=== PATIENT | female | born 1965 | race Caucasian/White ===

== ENCOUNTER → 2016-09-05 | Outpatient (CLI) | payer MEDICARE, MEDICAID ==
[~2016-09-05] MED LIST: BUPR-168 PO; DOCU-143 PO; IBUP-1773 PO; LISI10TA2 PO; OXYC-471 PO
--- OUTSIDE RECORDS SUMMARY | 2016-09-05 10:37 | XMS REPORT ---
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
--- NOTE | 2016-09-05 13:02 | Diagnostic Imaging Report ---
INDICATION: Pelvic pain. Pelvic sonogram: FINDINGS: The uterus is surgically absent. Left ovary is surgically absent. Right ovary cannot be located. There are no pathologic masses or fluid collections seen in the pelvis. IMPRESSION: Patient reportedly has surgically absent uterus and left ovary. The right ovary cannot be located. There are no abnormalities seen in the pelvis. Dictated by: Dictated on workstation # [id number]
== END ==
LOC: RAD 10:34
PROVIDERS: ATTEND Obstetrics & Gynecology
DX: N83.8 Other noninflammatory disorders of ovary, fallopian tube and broad ligament (principal)
CPT/HCPCS: 76830; 76856

== ENCOUNTER 2016-12-04 12:31 | Outpatient (CLI) | payer MEDICARE, MEDICAID ==
[~2016-12-04] VITALS: Ht 167.6 cm; Wt 76.3 kg
[2016-12-04 13:08] VITALS: BP 139/88
[2016-12-04 13:43] LABS: BASOPHILS % (AUTO) 0 % (0-10); EOSINOPHILS # (AUTO) 0.1 10^3/uL (0.0-0.3); EOSINOPHILS % (AUTO) 2 % (0-10); LYMPHOCYTES # (AUTO) 1.8 X 10^3 (1.0-4.0); LYMPHOCYTES % (AUTO) 31 % (12-44); MEAN CORPUSCULAR HEMOGLOBIN 32 PG (25-34); MEAN CORPUSCULAR HGB CONC 34 G/DL (32-36); MEAN CORPUSCULAR VOLUME 95 FL (80-99); MEAN PLATELET VOLUME 9.5 FL (7.4-10.4); MONOCYTES # (AUTO) 0.3 X 10^3 (0.0-1.0); MONOCYTES % (AUTO) 6 % (0-12); NEUTROPHILS # (AUTO) 3.4 X 10^3 (1.8-7.8); NEUTROPHILS % (AUTO) 61 % (42-75); PLATELET COUNT 272 10^3/uL (130-400); RED BLOOD COUNT 4.31 10^6/uL (4.35-5.85); RED CELL DISTRIBUTION WIDTH 12.5 % (10.0-14.5); WHITE BLOOD COUNT 5.7 10^3/uL (4.3-11.0)
== END 2016-12-04 14:13 | disposition home or self-care (01) ==
LOC: PREOP 12:31
PROVIDERS: ATTEND Obstetrics & Gynecology
DX: Z01.812 Encounter for preprocedural laboratory examination (principal); Z11.2 Encounter for screening for other bacterial diseases; N81.4 Uterovaginal prolapse, unspecified
CPT/HCPCS: 36415; 85025; 86850; 86900; 86901; 87081

== ENCOUNTER 2016-12-11 06:10 | Day surgery (SDC) | payer MEDICARE, MEDICAID ==
[~2016-12-11] VITALS: Ht 167.6 cm; Wt 76.3 kg
[2016-12-11] MEDS ORDERED: MIDAZOLAM 2 MG/2 ML (VERSED) VIAL IV ONE (06:45)
[2016-12-11] MEDS ORDERED: ONDANSETRON 4 MG/2 ML (SDV) Z0FRAN ONE ×2 (06:58→08:47)
[2016-12-11] MEDS ORDERED: LIDOCAINE PF 2% 10 ML (XYLOCAINE) AMP ONE (06:58)
[2016-12-11] MEDS ORDERED: proPOfol 200 MG/20 ML (DIPRIVAN) VIAL IV ONE (06:58)
[2016-12-11] MEDS ORDERED: LACTATED RINGERS 1,000 ML IV ONE ×2 (06:58→08:04)
[2016-12-11] MEDS ORDERED: SEVOFLURANE (ULTANE) 15 ML INHAL SOLN ONE ×6 (06:58→08:35)
[2016-12-11] MEDS ORDERED: DEXAMETHASONE PF 10 MG/ML (DECADRON) VIAL ONE (06:58)
[2016-12-11] MEDS ORDERED: fentaNYL INJECTION 100 MCG/2 ML AMP ONE ×2 (06:59→08:12)
[2016-12-11] MEDS: LACTATED RINGERS 1,000 ML IV PRN ×4 (07:00→21:10)
[2016-12-11] MEDS ORDERED: NS (IVPB) 100 ML ONE (07:04)
[2016-12-11] MEDS ORDERED: ESTROGENS CONJ. CREAM 30 GM (PREMARIN) TUBE ONE (07:04)
--- NOTE | 2016-12-11 07:08 | Progress Note-Pre Operative ---
Pre-Operative Progress Note H&P Reviewed The H&P was reviewed, patient examined and no changes noted. Date H&P Reviewed: December 11, 2016 Time H&P Reviewed: 07:05 Pre-Operative Diagnosis: Cystocele, Rectocele JEF MOLINA DO December 11, 2016 7:08 am
[2016-12-11 07:48] VITALS: BP 139/90
[2016-12-11] MEDS ORDERED: VASOPRESSIN 20 UNIT/1 ML IV ONE (08:00)
[2016-12-11] MEDS ORDERED: morphine INJ 10 MG/ML 1ML (SYR OR VIAL) ONE (08:47)
[2016-12-11] MEDS ORDERED: KETOROLAC 30 MG/ML VIAL ONE (08:48)
[2016-12-11] MEDS ORDERED: IBUP-1773 PO (09:11)
[2016-12-11] MEDS ORDERED: OXYC-471 PO (09:11)
[2016-12-11] MEDS ORDERED: DOCU-143 PO (09:11)
--- NOTE | 2016-12-11 09:13 | Discharge Inst-Women's Service ---
Discharge Inst-Women's Serv Depart Medication/Instructions New, Converted or Re-Newed RX: RX on Chart Consults/Follow Up Additional Follow Up: Yes Orders/Referrals Dr. Molina in 5 weeks Activity Activity: Activity as Tolerated Driving Instructions: No Driving for 1 Week (do not drive while taking oxycodone) NO SMOKING: NO SMOKING Nothing Inside Vagina: No Douching, No [place], No Tampons Diet Discharge Diet: No Restrictions Symptoms to Report to : Bleeding Excessive, Pain Increased, Fever Over 101 Degrees F, Vaginal Bleeding Increase, Questions/Concerns Keep stools soft-> liquid in order to promote proper healing of the rectocele repair. For Any Problems or Questions: Contact Your Physician Skin/Wound Care Wound Care Comment: apply premarin cream, peasized amount vaginally with your finger 3 x a week at night before bed. Bathing Instructions: Shower (x 3 weeks) JEF MOLINA DO December 11, 2016 09:13
[2016-12-11] MEDS ORDERED: ONDANSETRON 4 MG/2 ML (SDV) Z0FRAN IVP PRN (09:15)
[2016-12-11] MEDS ORDERED: HYDROmorphone (DILAUDID) 2 MG/ML VIAL IVP PRN (09:15)
[2016-12-11] MEDS ORDERED: oxyCODONE/APAP 5/325MG (PERCOCET 5) TABLET PO PRN (09:15)
[2016-12-11] MEDS: morphine INJ 10 MG/ML 1ML (SYR OR VIAL) IVP PRN ×2 (09:16→09:26)
[2016-12-11 10:15] VITALS: BP 134/89
--- NOTE | 2016-12-11 11:51 | OPERATIVE REPORT ---
DATE OF SERVICE: 12/11/2016 PREOPERATIVE DIAGNOSES: A 51-year-old female with grade III cystocele and grade III rectocele. POSTOPERATIVE DIAGNOSES: A 51-year-old female with grade III cystocele and grade III rectocele. PROCEDURE: Anterior and posterior colporrhaphy. SURGEON: Dr. Jef Molina IT WEB DEVELOPMENT CONSULTANT: MARGOTH Pemberton. She was necessary for retraction of necessary structure in order to proceed and complete the procedure. ANESTHESIA: General endotracheal. ESTIMATED BLOOD LOSS: 30 cc URINE OUTPUT: 30 cc, clear at the end of procedure. FLUIDS: 1400 mL of Lactated Ringer solution. FINDINGS: A grade III cystocele and rectocele and both of these were midline defects. Normal vaginal mucosa. Separation of the perineal body. SPECIMENS SENT: None. INDICATIONS FOR PROCEDURE: This 51-year-old female is a patient that came to my office with symptomatic urinary stress incontinence, as well as feeling of bulging and pressure in the vagina. She was also having issues with constipation and constantly bulging from that aspect. She feels like she cannot completely empty her bowels whenever she goes to the restroom. On evaluation, she was found to have my findings that were described above and I have discussed with the patient proceeding with surgical repair versus more conservative measures, including vaginal estrogen cream and pessary placement. Due to the patient's intent on continuing to be sexually active, she would prefer to have a surgical repair, as well as the fact that she is relatively healthy for her age and takes no medications. Risks of the procedure was discussed with the patient in detail, including risk of bleeding, infection, damage to any surrounding structures, including but not limited to the bowel, bladder, ureter, risk of fistula formation postoperatively, risk of hematoma formation, risk of DVT formation postoperatively, risks from anesthesia, need for blood transfusion and even . After everything was discussed with the patient in detail, consent was obtained in the preoperative area where the procedure was reviewed and the patient was then taken to the operating room. OPERATIVE REPORT IN DETAIL: Once in the operating room, general anesthesia was found to be adequate. She was placed in the dorsolithotomy position, prepped and draped in the normal sterile fashion. A Cannon catheter was placed using sterile technique and I first examined the patient and had my findings that I listed above. I proceeded with performing the anterior colporrhaphy first. I do this by infiltrating the anterior vaginal wall submucosa with vasopressin in concentration of 20 units and 100 mL of normal saline. I do this along all margins of the defect and then proceed with making a horizontal incision at the bladder neck and once I have added depth to the submucosa, I use this plane to introduce my Metzenbaum scissors and take this down to midline with the defect. I then incised the mucosa down this undermining that I did with the Metzenbaums and then grasped the lateral sidewalls of the mucosal incision using T clamps and bluntly dissect the vesicovaginal fascia off of the underlying submucosa. Once this was done bilaterally, I reapproximate the lateral margins of the vesicovaginal fascia using 0 Vicryl suture in plicating fashion, suspending and elevating the bladder defect. I then trim the access vaginal mucosal tissue and close the anterior vaginal mucosa using 3-0 Vicryl suture in a running locked fashion. After which, my point of dissection appeared to be hemostatic and there was good reduction of the cystocele, as previously noted. I then removed the weight speculum from the patient's vagina and proceeded with evaluating the rectum and the rectocele. At first, I grasped the vaginal introitus at the 4 o'clock and 7 o'clock positions using Allis clamps and infiltrate the perineal body using the same vasopressin concentration as used before. I then infiltrate the entire submucosa of the defect of the rectocele that was noted in my findings above. Once this is done, I make an incision using the knife along the mucocutaneous junction of the posterior fourchette between by 2 Allis clamps. I then take this incision down to a point at the midline down the perineum, connecting the 2 incisions and making an upside-down triangle incisional tract. Once this is in place, I then take off the cutaneous tissue of the perineum using the pickups and knife. This allows me to visualize the submucosa of the vaginal and the posterior wall. I take this along the lateral margins, undermining the tissue using the Metzenbaum scissors in elliptical fashion to the apex of the rectocele defect. Once this is reached at the back of the vagina, close to the vaginal cuff, I then bluntly dissect with some sharp dissection using the Metzenbaum scissors the vaginal mucosa off of the underlying submucosa, exposing the rectovaginal fascia. I, then, am able to close this entire defect in 1 layer using 3-0 Vicryl suture in a running locked fashion to the layer of the mucocutaneous junction. At which point, using 2-0 Vicryl, I performed crown stitches of the bulbocavernosus muscles, reapproximating and reinforcing the perineal body. I then continue my 3-0 Vicryl suture that I used to close the mucosa down the perineal body subcutaneously and then subcuticularly coming back up, reapproximating the skin, the subcutaneous tissue. After which, there was no active bleeding noted from any of my dissection points. I then packed the vagina using vaginal packing soaked in Premarin cream and leave the Cannon catheter in place. The patient tolerated the procedure well and was taken to recovery area in stable condition. Lap and sponge count is correct at the end of procedure. Instrument count is correct as well. Job ID: [id number] DocumentID: [id number] Dictated Date: 12/11/2016 09:33:02 Residential Gas Heat Technician Date: 12/11/2016 11:50:25 Dictated By: JEF MOLINA DO
[2016-12-11 13:40] VITALS: BP 185/98
[2016-12-11 14:00] VITALS: BP 196/108
[2016-12-11] MEDS ORDERED: ENALAPRILAT 2.5 MG/2 ML (VASOTEC) VIAL IV NR (14:15)
[2016-12-11] MEDS: KETOROLAC 30 MG/ML VIAL IV SCH ×2 (15:12→21:09)
[2016-12-11 16:24] VITALS: BP 151/88
[2016-12-11] MEDS: buPROPion 75 MG (WELLBUTRIN) TAB PO SCH (18:12)
[2016-12-11 21:10] VITALS: BP 174/94
[2016-12-11] MEDS ORDERED: ZOLPIDEM 5 MG (AMBIEN) TAB PO ONE (21:30)
[2016-12-11] MEDS ORDERED: amLODIPine 5 MG (NORVASC) TAB ONE (21:31)
[2016-12-11] MEDS ORDERED: lisINopril 10 MG (PRINIVIL) TAB ONE (21:31)
[2016-12-12] VITALS: BP 138/83
[2016-12-12 02:45] VITALS: BP 105/63
[2016-12-12] MEDS: KETOROLAC 30 MG/ML VIAL IV SCH (02:45)
[2016-12-12 06:34] LABS: BASOPHILS % (AUTO) 0 % (0-10); EOSINOPHILS % (AUTO) 0 % (0-10); LYMPHOCYTES % (AUTO) 7 % (12-44); MEAN CORPUSCULAR HEMOGLOBIN 33 PG (25-34); MEAN CORPUSCULAR HGB CONC 35 G/DL (32-36); MEAN CORPUSCULAR VOLUME 94 FL (80-99); MONOCYTES # (AUTO) 0.8 X 10^3 (0.0-1.0); MONOCYTES % (AUTO) 6 % (0-12); NEUTROPHILS # (AUTO) 11.8 X 10^3 (1.8-7.8); NEUTROPHILS % (AUTO) 87 % (42-75); PLATELET COUNT 232 10^3/uL (130-400); RED BLOOD COUNT 3.93 10^6/uL (4.35-5.85); WHITE BLOOD COUNT 13.5 10^3/uL (4.3-11.0)
[2016-12-12 07:17] LABS: ANION GAP 8 MMOL/L (5-14); BLOOD UREA NITROGEN 16 MG/DL (7-18); BUN/CREATININE RATIO 20; CALCIUM 9.5 MG/DL (8.5-10.1); CARBON DIOXIDE 23 MMOL/L (21-32); CHLORIDE 104 MMOL/L (98-107); CREATININE SERUM 0.79 MG/DL (0.60-1.30); GFR ESTIMATED > 60; GLUCOSE 134 MG/DL (70-105); POTASSIUM 4.4 MMOL/L (3.6-5.0); SODIUM 135 MMOL/L (135-145)
[2016-12-12 07:41] LABS: BAND NEUTROPHILS 5 %; NEUTROPHILS % (MANUAL) 83 %
[2016-12-12 07:42] LABS: BASOPHILS % (MANUAL) 0 %; EOSINOPHILS % (MANUAL) 0 %; LYMPHOCYTES % (MANUAL) 10 %
[2016-12-12 08:20] VITALS: BP 134/77
[2016-12-12] MEDS: buPROPion 75 MG (WELLBUTRIN) TAB PO SCH (08:26)
[2016-12-12] MEDS ORDERED: lisINopril 10 MG (PRINIVIL) TAB PO SCH (09:00)
[2016-12-12] MEDS ORDERED: IBUPROFEN 600 MG (MOTRIN) TAB PO SCH (09:15)
[2016-12-12] MEDS ORDERED: LISI10TA2 PO (09:23)
[2016-12-12] MEDS ORDERED: BUPR-168 PO (09:23)
== END 2016-12-12 10:50 | disposition home or self-care (01) ==
LOC: SDC 06:10 → WS 10:25 → SDC 12-12 10:50
PROVIDERS: ATTEND Obstetrics & Gynecology
DX: N81.10 Cystocele, unspecified (principal); N81.6 Rectocele; I10 Essential (primary) hypertension; Z79.899 Other long term (current) drug therapy; F17.210 Nicotine dependence, cigarettes, uncomplicated
CPT/HCPCS: 36415; 80048; 85007; 85027; 94664; 96361; 96375; 96376

== ENCOUNTER → 2018-05-19 | Outpatient (CLI) | payer MEDICARE, MEDICAID ==
[~2018-05-19] MED LIST changes: +BARIUM SUSPENSION 105% (LIQUID POLIBAR PLUS) 240 ML/DOSE PO ONE; +BARIUM SUSPENSION 60% (LIQUID EZ PAQUE) 240 ML DOSE PO ONE
--- NOTE | 2018-05-19 12:50 | Diagnostic Imaging Report ---
INDICATION: Dysphasia. Patient ingested effervescent crystals as well as thin and thick barium and imaging of the esophagus was performed. One minute and 2 seconds of fluoroscopic time was utilized. The esophagus has a smooth contour. No mass or stricture is identified. No hiatal hernia or gastroesophageal reflux was demonstrated. IMPRESSION: Unremarkable esophagram. Dictated by: Dictated on workstation # [id number]
== END ==
LOC: RAD 09:07
PROVIDERS: ATTEND Nurse Practitioner
DX: R13.19 Other dysphagia (principal); R47.02 Dysphasia
CPT/HCPCS: 74220

== ENCOUNTER 2019-07-18 08:56 | Emergency (ER) | payer MEDICARE, MEDICAID ==
[~2019-07-18] VITALS: Ht 167.7 cm; Wt 69.2 kg
[~2019-07-18 08:56] MED LIST changes: -BARIUM SUSPENSION 105% (LIQUID POLIBAR PLUS) 240 ML/DOSE PO ONE; -BARIUM SUSPENSION 60% (LIQUID EZ PAQUE) 240 ML DOSE PO ONE
[2019-07-18] MEDS ORDERED: ACETAMINOPHEN 325 MG TABLET PO ONE (09:15)
[2019-07-18] MEDS ORDERED: ASPIRIN 325 MG (5 GR) TABLET PO ONE (09:15)
[2019-07-18] MEDS ORDERED: KETOROLAC 30 MG/ML VIAL IVP ONE (09:15)
[2019-07-18] MEDS ORDERED: CYCLOBENZAPRINE 10 MG (FLEXERIL) TAB PO SCH (09:15)
--- NOTE | 2019-07-18 09:19 | ED Chest Pain ---
General Chief Complaint: Chest Wall Stated Complaint: RT RIB PAIN History of Present Illness Date Seen by Provider: Jul 18, 2019 Time Seen by Provider: 09:00 Initial Comments The patient is a 53-year-old female with a history of hypertension and former tobacco abuse and with no history of other diagnosed cardiorespiratory disease. She presents for evaluation of right posterolateral and lateral chest wall discomfort which is pleuritic and constant, with atraumatic onset 3 days prior to arrival and worsening since then. The patient states she is unable to get comfortable secondary to discomfort. Associated mild nonbloody vomiting and diarrhea, about 3-4 episodes per day of each over the last 3-4 days. Patient is unable to tell me which came first, the vomiting or the chest wall discomfort. Associated mild upper respiratory congestion over the past few days. Associated mild shortness of breath as the patient states she is unable to take a good full deep breath in secondary to discomfort. No associated fevers, hematemesis, hematochezia, melena, cough, abdominal pain, midline interscapular thoracic back pain, flank pain, dysuria or hematuria, recent unusual travel, unusual foods, sick contacts with similar symptoms, recent antibiotic use. She denies recent long bus car plane trips, recent surgery, recent immobilization, hemoptysis, calf pain or swelling, estrogen or steroid use. Patient does note some relatives with blood clot history though she denies having one herself in the past. Allergies and Home Medications Allergies Coded Allergies: No Known Drug Allergies (Unverified , 12/04/16) Home Medications Bupropion HCl 75 Mg Tablet, 75 MG PO BID WITH MEALS Prescribed by: JEF MOLINA on 12/12/16922 Docusate Sodium 100 Mg Capsule, 100 MG PO BID Prescribed by: JEF MOLINA on 12/11/16910 Ibuprofen 600 Mg Tablet, 600 MG PO Q6H Prescribed by: JEF MOLINA on 12/11/16910 Lisinopril 10 Mg Tablet, 10 MG PO DAILY Prescribed by: JEF MOLINA on 12/12/16922 Oxycodone HCl/Acetaminophen 1 Each Tablet, 1-2 TAB PO Q4H PRN for PAIN-MODERATE Prescribed by: JEF MOLINA on 12/11/16910 Patient Home Medication List Home Medication List Reviewed: Yes Review of Systems Review of Systems Constitutional: see HPI All Other Systems Reviewed Negative Unless Noted: Yes (Negative excepted noted.) Past Ociyifx-Drfida-Bhxdcq Hx Past Med/Social Hx: Reviewed Nursing Past Med/Soc Hx Patient Social History Alcohol Beverage of Choice: Beer Type Used: Cigarettes Recent Foreign Travel: No Recent Hopitalizations: No Seasonal Allergies Seasonal Allergies: No Past Medical History Hysterectomy, Tonsillectomy 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 Disorders: Yes (CYSTOCELE, RECTOCLES) Female 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 Disorders: Denies 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 5.0oz. [id number]; 27.2 BMI Method: General Appearance: No Apparent Distress Other comments This is an older female appearing nontoxic and in no acute distress. Head is normocephalic and atraumatic. Neck is supple and nontender. Oropharynx is moist. No mucous to bilateral nares or turbinate erythema noted bilaterally. Lungs are clear to auscultation in all stations. Evaluation of the chest wall and thoracic back reveals no erythema, warmth, swelling, rash, lesion or other surface abnormality. No midline back tenderness. There is a normal S1 and S2 without rubs or gallops and capillary refill is appropriate, less than 2 seconds globally. Abdomen is soft, nontender and nondistended. Skin is warm and dry without cyanosis, clubbing or edema. Psychiatrically, the patient demonstrates appropriate mood and affect and is alert. No calf or other BLE tenderness, swe lling or erythema noted bilaterally. Progress/Results/Core Measures Results/Orders Lab Results Laboratory Tests Test 07/18/19 09:16 07/18/19 09:30 Range/Units White Blood Count 4.1 L 4.3-11.0 10^3/uL Red Blood Count 3.28 L 4.35-5.85 10^6/uL Hemoglobin 9.9 L 11.5-16.0 G/DL Hematocrit 30 L 35-52 % Mean Corpuscular Volume 90 80-99 FL Mean Corpuscular Hemoglobin 30 25-34 PG Mean Corpuscular Hemoglobin Concent 34 32-36 G/DL Red Cell Distribution Width 11.9 10.0-14.5 % Platelet Count 271 130-400 10^3/uL Mean Platelet Volume 9.1 7.4-10.4 FL Neutrophils (%) (Auto) 47 42-75 % Lymphocytes (%) (Auto) 41 12-44 % Monocytes (%) (Auto) 9 0-12 % Eosinophils (%) (Auto) 3 0-10 % Basophils (%) (Auto) 1 0-10 % Neutrophils # (Auto) 1.9 1.8-7.8 X 10^3 Lymphocytes # (Auto) 1.7 1.0-4.0 X 10^3 Monocytes # (Auto) 0.4 0.0-1.0 X 10^3 Eosinophils # (Auto) 0.1 0.0-0.3 10^3/uL Basophils # (Auto) 0.0 0.0-0.1 10^3/uL Prothrombin Time 12.2 12.2-14.7 SEC INR Comment 0.9 0.8-1.4 Activated Partial Thromboplast Time 25 24-35 SEC D-Dimer 0.60 H 0.00-0.49 UG/ML Sodium Level 133 L 135-145 MMOL/L Potassium Level 4.5 3.6-5.0 MMOL/L Chloride Level 99 98-107 MMOL/L Carbon Dioxide Level 22 21-32 MMOL/L Anion Gap 12 5-14 MMOL/L Blood Urea Nitrogen 6 L 7-18 MG/DL Creatinine 0.62 0.60-1.30 MG/DL Estimat Glomerular Filtration Rate > 60 BUN/Creatinine Ratio 10 Glucose Level 98 70-105 MG/DL Calcium Level 9.1 8.5-10.1 MG/DL Corrected Calcium 9.1 8.5-10.1 MG/DL Total Bilirubin 0.3 0.1-1.0 MG/DL Aspartate Amino Transf (AST/SGOT) 59 H 5-34 U/L Alanine Aminotransferase (ALT/SGPT) 97 H 0-55 U/L Alkaline Phosphatase 63 40-136 U/L Troponin I < 0.30 <0.30 NG/ML Pro-B-Type Natriuretic Peptide 476.7 H <75.0 PG/ML Total Protein 6.2 L 6.4-8.2 GM/DL Albumin 4.0 3.2-4.5 GM/DL Urine Color YELLOW Urine Clarity CLEAR Urine pH 6.5 5-9 Urine Specific [place] 1.015 L 1.016-1.022 Urine Protein NEGATIVE NEGATIVE Urine Glucose (UA) NEGATIVE NEGATIVE Urine Ketones 1+ H NEGATIVE Urine Nitrite NEGATIVE NEGATIVE Urine Bilirubin NEGATIVE NEGATIVE Urine Urobilinogen 0.2 < = 1.0 MG/DL Urine Leukocyte Esterase NEGATIVE NEGATIVE Urine RBC (Auto) NEGATIVE NEGATIVE Urine RBC NONE /HPF Urine WBC NONE /HPF Urine Squamous Epithelial Cells 5-10 /HPF Urine Crystals NONE /LPF Urine Bacteria TRACE /HPF Urine Casts NONE /LPF Urine Mucus SMALL H /LPF Urine Culture Indicated NO My Orders Orders - BRITNEY MOFFETT MD Cbc With Automated Diff (07/18/19 09:11) Comprehensive Metabolic Panel (07/18/19 09:11) Troponin I Fs (07/18/19 09:11) Ekg Tracing (07/18/19 09:11) Chest Pa/Lat (2 View) (07/18/19 09:11) Probnp Fs (07/18/19 09:11) Protime With Inr (07/18/19 09:11) Partial Thromboplastin Time (07/18/19 09:11) Fibrin Degradation Products (07/18/19 09:11) Aspirin Tablet (Aspirin Tablet) (07/18/19 09:15) Ketorolac Injection (Toradol Injection) (07/18/19 09:15) Acetaminophen Tablet/Caplet (Tylenol T (07/18/19 09:15) Cyclobenzaprine Tablet (Flexeril Tablet) (07/18/19 09:15) Ua Culture If Indicated (07/18/19 09:28) Ct Angio Chest W (07/18/19 09:45) Morphine Injection (Morphine Injection (07/18/19 10:07) Iohexol Injection (Omnipaque 350 Mg/Ml 1 (07/18/19 10:15) Received Contrast (Hold Metformin- Contr (07/18/19 10:15) Sodium Chloride Flush (Catheter Flush Sy (07/18/19 10:15) Ns (Ivpb) (Sodium Chloride 0.9% Ivpb Bag (07/18/19 10:15) Medications Given in ED Current Medications Medications Dose Ordered Sig/Radha Route Start Time Stop Time Status Last Admin Dose Admin Acetaminophen 975 mg ONCE ONCE PO 07/18/19 09:15 07/18/19 09:16 DC 07/18/19 09:23 975 MG Aspirin 325 mg ONCE ONCE PO 07/18/19 09:15 07/18/19 09:16 DC 07/18/19 09:23 325 MG Iohexol 125 ml ONCE ONCE IV 07/18/19 10:15 07/18/19 10:16 DC 07/18/19 10:19 125 ML Ketorolac Tromethamine 30 mg ONCE ONCE IVP 07/18/19 09:15 07/18/19 09:16 DC 07/18/19 09:23 30 MG Sodium Chloride 10 ml NEEDED PRN IV 07/18/19 10:15 07/18/19 10:19 10 ML Sodium Chloride 100 ml ONCE ONCE IV 07/18/19 10:15 07/18/19 10:16 DC 07/18/19 10:19 80 ML Vital Signs/I&O 07/18/19 09:00 Temp 36.6 Pulse 87 Resp 18 B/P (MAP) 139/76 (97) Pulse Ox 100 O2 Delivery Room Air Progress Progress Note : Time: 09:22 Progress Note Well-appearing 53-year-old who presents for evaluation of pleuritic right lateral chest wall and right posterolateral back discomfort, atraumatic in onset, over the past 3 days. Symptoms occur in the setting of some mild vomiting and diarrhea over that same period. Most likely scenario would seem to be muscle strain secondary to vomiting but will explore and rule out other life threats with labs including d-dimer, EKG and chest x-ray. We will treat symptomatically as per flowsheet. We will then reevaluate. Update 1040: Patient is feeling better upon reassessment after medication as noted here in the emergency department. Large workup is without significant evidence of acute process. Patient does appear more anemic than by laboratory evaluation in 2017 and does have mildly elevated transaminases which she reports is not a new finding. BNP is also very mildly elevated without findings of peripheral or pulmonary congestion concerning for heart failure. I have counseled the patient to follow this finding up as well as her elevated transaminases and anemia with her primary care physician in the next 1-2 days. We will prescribe medication for discomfort and spasm. The patient understands that if she feels worse instead of better or develops other new symptoms of concern that she should return immediately to the emergency department for reevaluation. All questions are answered. Comment Sinus rhythm, rate 86, no acute ST elevation or depression, NM 156, QRS 85, QTc 462, EP interpretation. Diagnostic Imaging Diagonstic Imaging: Xray Plain Films/CT/US/NM/MRI: chest Comments XR chest: No acute cardiopulmonary process, EP and rad interp CT ANGIO CHEST W PROCEDURE: CT angiography of the chest with contrast. TECHNIQUE: Multiple contiguous axial images were obtained through the chest after uneventful bolus administration of intravenous contrast. 3D reconstructed CTA MIP acquisitions were also performed. Auto Exposure Controls were utilized during the CT exam to meet ALARA standards for radiation dose reduction. INDICATION: Right-sided rib pain for 3 days. COMPARISON: Chest radiograph performed the same date FINDINGS: This helical CT pulmonary angiogram is diagnostic to the subsegmental level branches of the pulmonary artery and demonstrates no pulmonary emboli. The heart and great vessels are unremarkable. There is no pericardial effusion. No evidence of thoracic aortic dissection or aneurysm. There is no axillary, mediastinal, or hilar adenopathy. The lungs demonstrate no consolidation, nodules, or other parenchymal abnormality. No central endobronchial obstructing lesions. No pleural effusion or pneumothorax is seen. Old healed rib fractures noted in the right 9th rib. No acute osseous abnormalities. Limited views of the upper abdomen are unremarkable. IMPRESSION: 1. No acute pulmonary embolus. Negative CT chest. 2. Old healed rib fracture of the right 9th rib. Dictated by: Dictated on workstation # [id number] Departure Impression Primary Impression: Pleuritic pain Additional Impression: Acute chest wall pain Disposition: 01 HOME, SELF-CARE Condition: Improved Departure-Patient Inst. Referrals: ALPHONSO CABRAL MD (PCP/Family) Primary Care Physician Patient Instructions: Pleuritic Chest Pain Add. Discharge Instructions: Please follow up closely in the next 1-2 days with primary care regarding your chest and back discomfort. Workup today was generally reassuring but you should follow up the laboratory abnormalities we discussed with her primary care physician. Please have your primary care physician request records up from this visit. Use the medicine as prescribed for your symptoms. Return to the emergency department right away with worsened symptoms or other new concerns. Scripts Tramadol HCl (Tramadol HCl) 50 Mg Tablet 50 MG PO Q6H PRN for PAIN for 3 Days, #12 TAB 0 Refills Prov: BRITNEY MOFFETT MD 07/18/19 Cyclobenzaprine HCl (Cyclobenzaprine HCl) 10 Mg Tablet 10 MG PO Q8H for pain/spasm, #13 TAB Prov: BRITNEY MOFFETT MD 07/18/19 Methylprednisolone (Medrol) 4 Mg Tab 4 MG PO UD for 6 Days, #21 TAB as directed per dose pack Prov: BRITNEY MOFFETT MD 07/18/19 Diclofenac Potassium (Diclofenac Potassium) 50 Mg Tablet 50 MG PO Q8H for Pain, #30 TAB Prov: BRITNEY MOFFETT MD 07/18/19 BRITNEY MOFFETT MD Jul 18, 2019 09:19 POS
[2019-07-18 09:28] LABS: HEMATOCRIT 30 % (35-52); HEMOGLOBIN 9.9 G/DL (11.5-16.0); MEAN CORPUSCULAR HEMOGLOBIN 30 PG (25-34); MEAN CORPUSCULAR HGB CONC 34 G/DL (32-36); MEAN CORPUSCULAR VOLUME 90 FL (80-99); RED CELL DISTRIBUTION WIDTH 11.9 % (10.0-14.5); WHITE BLOOD COUNT 4.1 10^3/uL (4.3-11.0)
--- NOTE | 2019-07-18 09:28 | Diagnostic Imaging Report ---
EXAMINATION: Chest 2 view HISTORY: Right-sided chest pain for 3 days. COMPARISON: None available. FINDINGS: The lung volumes are normal. No focal consolidation is seen. No large pleural effusion or pneumothorax is seen. The cardiomediastinal silhouette is normal in size and contour. Focal abnormal contour is seen in the 9th posterior lateral right rib. This is most suggestive of an old healed rib fracture. IMPRESSION: 1. No acute pleuroparenchymal process. 2. Focal abnormal contour in the 9th posterior lateral right rib, likely representing old healed rib fracture. Recommend correlation with physical exam. Dictated by: Dictated on workstation # [id number]
[2019-07-18 09:29] LABS: BASOPHILS % (AUTO) 1 % (0-10); EOSINOPHILS # (AUTO) 0.1 10^3/uL (0.0-0.3); EOSINOPHILS % (AUTO) 3 % (0-10); LYMPHOCYTES # (AUTO) 1.7 X 10^3 (1.0-4.0); LYMPHOCYTES % (AUTO) 41 % (12-44); MEAN PLATELET VOLUME 9.1 FL (7.4-10.4); MONOCYTES # (AUTO) 0.4 X 10^3 (0.0-1.0); MONOCYTES % (AUTO) 9 % (0-12); NEUTROPHILS # (AUTO) 1.9 X 10^3 (1.8-7.8); NEUTROPHILS % (AUTO) 47 % (42-75); PLATELET COUNT 271 10^3/uL (130-400)
[2019-07-18 09:42] LABS: FIBRIN DEGRADATION PRODUCTS 0.6 UG/ML (0.00-0.49); INR 0.9 (0.8-1.4); PROTHROMBIN TIME PATIENT 12.2 SEC (12.2-14.7)
[2019-07-18 09:46] LABS: BACTERIA,URINE TRACE /HPF; BILIRUBIN,URINE NEGATIVE (NEGATIVE); CLARITY,URINE CLEAR; COLOR,URINE YELLOW; GLUCOSE, URINE (UA) NEGATIVE (NEGATIVE); KETONES,URINE 1+ (NEGATIVE); LEUKOCYTE ESTERASE ,URINE NEGATIVE (NEGATIVE); NITRITE,URINE NEGATIVE (NEGATIVE); PH,URINE 6.5 (5-9); PROTEIN,URINE NEGATIVE (NEGATIVE)
[2019-07-18 09:53] LABS: BILIRUBIN,TOTAL 0.3 MG/DL (0.1-1.0); BUN/CREATININE RATIO 10; CALCIUM 9.1 MG/DL (8.5-10.1); CARBON DIOXIDE 22 MMOL/L (21-32); CHLORIDE 99 MMOL/L (98-107); CREATININE SERUM 0.62 MG/DL (0.60-1.30); GFR ESTIMATED > 60; GLUCOSE 98 MG/DL (70-105); POTASSIUM 4.5 MMOL/L (3.6-5.0); SODIUM 133 MMOL/L (135-145)
[2019-07-18 09:54] LABS: ALANINE AMINOTRANSFERASE 97 U/L (0-55); ALKALINE PHOSPHATASE 63 U/L (40-136); TOTAL PROTEIN 6.2 GM/DL (6.4-8.2)
[2019-07-18] MEDS ORDERED: morphine INJ 10 MG/ML 1ML (SYR OR VIAL) IVP STA (10:07)
[2019-07-18] MEDS ORDERED: NS 100 ML (IVPB) BAG IV ONE (10:15)
[2019-07-18] MEDS ORDERED: IOHEXOL 350 MG/ML 150 ML (OMNIPAQUE 350) VIAL IV ONE (10:15)
[2019-07-18] MEDS ORDERED: HOLD METFORMIN - RECEIVED CONTRAST 20 ML VIAL IV SCH (10:15)
[2019-07-18] MEDS ORDERED: CATHETER FLUSH 10 ML SYR IV PRN (10:15)
--- NOTE | 2019-07-18 10:36 | Diagnostic Imaging Report ---
PROCEDURE: CT angiography of the chest with contrast. TECHNIQUE: Multiple contiguous axial images were obtained through the chest after uneventful bolus administration of intravenous contrast. 3D reconstructed CTA MIP acquisitions were also performed. Auto Exposure Controls were utilized during the CT exam to meet ALARA standards for radiation dose reduction. INDICATION: Right-sided rib pain for 3 days. COMPARISON: Chest radiograph performed the same date FINDINGS: This helical CT pulmonary angiogram is diagnostic to the subsegmental level branches of the pulmonary artery and demonstrates no pulmonary emboli. The heart and great vessels are unremarkable. There is no pericardial effusion. No evidence of thoracic aortic dissection or aneurysm. There is no axillary, mediastinal, or hilar adenopathy. The lungs demonstrate no consolidation, nodules, or other parenchymal abnormality. No central endobronchial obstructing lesions. No pleural effusion or pneumothorax is seen. Old healed rib fractures noted in the right 9th rib. No acute osseous abnormalities. Limited views of the upper abdomen are unremarkable. IMPRESSION: 1. No acute pulmonary embolus. Negative CT chest. 2. Old healed rib fracture of the right 9th rib. Dictated by: Dictated on workstation # [id number]
[2019-07-18] MEDS ORDERED: TRAM50TA2 PO (10:47)
[2019-07-18] MEDS ORDERED: CYCL10TA9 PO (10:47)
[2019-07-18] MEDS ORDERED: NF-METHYLP PO (10:47)
[2019-07-18] MEDS ORDERED: DICL50TA4 PO (10:47)
[2019-07-18 11:15] VITALS: BP 116/71
== END 2019-07-18 11:15 | disposition home or self-care (01) ==
LOC: EDUNIT# 08:56 → ER FS 08:58
DX: R07.81 Pleurodynia (principal); R07.89 Other chest pain; I10 Essential (primary) hypertension; F41.9 Anxiety disorder, unspecified; F32.9 Major depressive disorder, single episode, unspecified; Z90.89 Acquired absence of other organs; Z90.710 Acquired absence of both cervix and uterus
CPT/HCPCS: 36415; 71046; 71275; 80053; 81000; 83880; 84484; 85025; 85379; 85610; 85730; 93005

== ENCOUNTER → 2020-07-19 | Outpatient (CLI) | payer MEDICARE, MEDICAID ==
[~2020-07-19] MED LIST changes: +CYCL10TA9 PO; +DICL50TA4 PO; +NF-METHYLP PO; +TRM50T PO
--- NOTE | 2020-07-19 17:16 | Diagnostic Imaging Report ---
EXAMINATION: Facial bone radiographs, 3 views. COMPARISON: None. HISTORY: 54-year-old female, fall. Injury to the nose and facial bones. FINDINGS: Radiographs are not sensitive for detection of maxillofacial bone fractures. This would be more optimally evaluated on dedicated CT maxillofacial area study if there is high clinical concern for a facial bone fracture. There is no identified radiopaque foreign body. There is no obvious displaced nasal or maxillofacial bone fracture. IMPRESSION: 1. No obvious displaced nasal or maxillofacial bone fracture. Radiographs are suboptimal for this assessment and overall evaluation would be improved with CT maxillofacial area without contrast if indicated clinically. Dictated by: Dictated on workstation # [id number]
== END ==
LOC: RAD FS 10:54
PROVIDERS: ATTEND Nurse Practitioner Family
DX: S09.92XA Unspecified injury of nose, initial encounter (principal); W19.XXXA Unspecified fall, initial encounter
CPT/HCPCS: 70150

== ENCOUNTER 2020-12-28 17:20 | Emergency (ER) | payer MEDICARE, MEDICAID ==
[~2020-12-28] VITALS: Ht 167 cm; Wt 71.0 kg
[2020-12-28 17:20] VITALS: BP 185/79
[~2020-12-28 17:20] MED LIST changes: +FLUORESCEIN (FLUOR-I-STRIPS) 1 MG STRP ONE; -LISI10TA2 PO; +LISI10TA25 PO; -OXYC-471 PO; +OXYC1TAB11 PO; +TETRACAINE 0.5% OPHTH SOLN 4 ML BTL (SINGLE DOSE ONLY) ONE
--- NOTE | 2020-12-28 17:33 | ED EENT ---
History of Present Illness General Chief Complaint: Eye Problems Stated Complaint: LT EYE PROBLEMS Source: patient Exam Limitations: no limitations History of Present Illness Date Seen by Provider: December 28, 2020 Time Seen by Provider: 17:32 Initial Comments 55-year-old female presents with pain in her left eye since following reconstructive nasal surgery today in [place]. States that after she woke up her eye was feeling irritated and sore and she asked for it to be looked at, but no one complied with her concern. She presents to the ER with continued left eye irritation and pain, worse with movement, denies any loss of vision. Allergies and Home Medications Allergies Coded Allergies: No Known Drug Allergies (Unverified , 12/04/16) Home Medications Bupropion HCl 75 Mg Tablet, 75 MG PO BID WITH MEALS Prescribed by: JEF MOLINA on 12/12/16922 Cyclobenzaprine HCl 10 Mg Tablet, 10 MG PO Q8H Prescribed by: BRITNEY MOFFETT on 07/18/19 104 Diclofenac Potassium 50 Mg Tablet, 50 MG PO Q8H Prescribed by: BRITNEY MOFFETT on 07/18/19 104 Docusate Sodium 100 Mg Capsule, 100 MG PO BID Prescribed by: JEF MOLINA on 12/11/16 09 Erythromycin Base 1 Gm Oint...g., 0 OP Q6H 1/2 inch Prescribed by: MARIA TERESA CAVANAUGH on 12/28/20 174 Ibuprofen 600 Mg Tablet, 600 MG PO Q6H Prescribed by: JEF MOLINA on 12/11/16 09 Lisinopril 10 Mg Tablet, 10 MG PO DAILY Prescribed by: JEF MOLINA on 12/12/16 09 Methylprednisolone 4 Mg Tab, 4 MG PO UD as directed per dose pack Prescribed by: BRITNEY MOFFETT on 07/18/19 104 Oxycodone HCl/Acetaminophen 1 Each Tablet, 1-2 TAB PO Q4H PRN for PAIN-MODERATE Prescribed by: JEF MOLINA on 12/11/16 09 Tramadol HCl 50 Mg Tablet, 50 MG PO Q6H PRN for PAIN Prescribed by: BRITNEY MOFFETT on 07/18/19 1047 Patient Home Medication List Home Medication List Reviewed: Yes Review of Systems Review of Systems Constitutional: No dizziness, No fever, No malaise, No weakness Eyes: See HPI; Denies Blindness, Denies Blurred Vision, Denies Drainage, Denies Decreased Acuity, Denies Inflammation; Pain; Denies Photophobia, Denies Previous Injury, Denies Shadows, Denies Tunnel Vision, Denies Vision Changes, Denies Contact Lenses, Denies Glasses; Other (post- op eye pain) Nose: see HPI Gastrointestinal: No abdominal pain, No nausea, No vomiting Past Xisnjza-Lfgxoh-Qjskkq Hx Past Med/Social Hx: Reviewed Nursing Past Med/Soc Hx Patient Social History Alcohol Beverage of Choice: Beer Type Used: Cigarettes Former Smoker, Quit: Aug 03, 2016 2nd Hand Smoke Exposure: No Recent Hopitalizations: No Seasonal Allergies Seasonal Allergies: No Past Medical History Surgeries: Yes (SHOULDER ROTATOR CUFF, LASIK-CATARACTS, BLADDER SLING) Hysterectomy, Tonsillectomy Respiratory: No Cardiac: Yes Hypertension Neurological: No 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 Disorders: Yes (CYSTOCELE, RECTOCLES) Female 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 5.0oz. 76.366654uh; 24.00 BMI Method: General Appearance: WD/WN, no apparent distress Eyes: left eye corneal abrasion; bilateral eye normal inspection, bilateral eye PERRL, bilateral eye EOMI Procedures/Interventions Eye : Location: left eye Anesthesia (gtts): Tetracaine Progress/Procedure Conclusion fluorescien uptake (horizontal abrasion) inferior left cornea Progress/Results/Core Measures Results/Orders My Orders Orders - MARIA TERESA CAVANAUGH DO Fluorescein Strips (Okqia-D-Kswvwt) (12/28/20 17:19) Tetracaine 0.5% Ophth Gisele Sdv (Tetracai (12/28/20 17:19) Tetracaine 0.5% Ophth Gisele Sdv (Tetracai (12/28/20 17:45) Fluorescein Strips (Sjyll-Y-Bhvloo) (12/28/20 17:45) Erythromycin Ophth Oint (Erythromycin Op (12/28/20 17:45) Medications Given in ED Current Medications Medications Dose Ordered Sig/Radha Route Start Time Stop Time Status Last Admin Dose Admin Fluorescein Sodium 1 mg ONCE ONCE OU 12/28/20 17:45 12/28/20 17:46 DC 12/28/20 17:45 1 MG Tetracaine HCl 4 ml ONCE ONCE OU 12/28/20 17:45 12/28/20 17:46 DC 12/28/20 17:45 4 ML Vital Signs/I&O 12/28/20 17:20 Temp 36.1 Pulse 71 Resp 16 B/P (MAP) 185/79 (114) Pulse Ox 98 O2 Delivery Room Air Departure Impression Primary Impression: Corneal abrasion Qualified Codes: S05.02XA - Injury of conjunctiva and corneal abrasion without foreign body, left eye, initial encounter Disposition: HOME, SELF-CARE Condition: Improved Departure-Patient Inst. Decision time for Depature: 17:45 Referrals: JOHN SEN MD (PCP/Family) Primary Care Physician Patient Instructions: Corneal Abrasion (DC) Add. Discharge Instructions: Follow up with your local Eye Doctor on Thursday for re-examination. Return to the ER over the weekend for any worsening pain. All discharge instructions reviewed with patient and/or family. Voiced understanding. Scripts Erythromycin Base (Erythromycin Opthalmic Ointment) 1 Gm Oint...g. 0 OP Q6H for 3 Days, #1 TUBE 1/2 inch Prov: MARIA TERESA CAVANAUGH DO 12/28/20 MARIA TERESA CAVANAUGH DO December 28, 2020 17:33
[2020-12-28] MEDS ORDERED: ERYTHROMYCIN OPHTH OINT 1 GM (SINGLE USE) TUBE ONE (17:38)
[2020-12-28] MEDS ORDERED: FLUORESCEIN (FLUOR-I-STRIPS) 1 MG STRP OU ONE (17:45)
[2020-12-28] MEDS ORDERED: TETRACAINE 0.5% OPHTH SOLN 4 ML BTL (SINGLE DOSE ONLY) OU ONE (17:45)
[2020-12-28] MEDS ORDERED: ERYTHROMYCIN OPHTH OINT 1 GM (SINGLE USE) TUBE OP STA (17:45)
[2020-12-28] MEDS ORDERED: ERYT1OIN6 OP (17:46)
== END 2020-12-28 17:50 | disposition home or self-care (01) ==
LOC: EDUNIT# 17:20 → ER FS 17:21
DX: S05.02XA Injury of conjunctiva and corneal abrasion without foreign body, left eye, initial encounter (principal); I10 Essential (primary) hypertension; K59.09 Other constipation; F41.9 Anxiety disorder, unspecified; F32.9 Major depressive disorder, single episode, unspecified; Z87.891 Personal history of nicotine dependence; Z98.890 Other specified postprocedural states; X58.XXXA Exposure to other specified factors, initial encounter
CPT/HCPCS: 99282

== ENCOUNTER 2021-04-09 05:45 | Outpatient (CLI) | payer MEDICAID, MEDICARE ==
[~2021-04-09] VITALS: Ht 167.6 cm; Wt 69.3 kg
[~2021-04-09 05:45] MED LIST changes: +ERYT1OIN6 OP; -FLUORESCEIN (FLUOR-I-STRIPS) 1 MG STRP ONE; -TETRACAINE 0.5% OPHTH SOLN 4 ML BTL (SINGLE DOSE ONLY) ONE
== END 2021-04-09 14:59 | disposition home or self-care (01) ==
LOC: PREOP 05:45
PROVIDERS: ATTEND Surgery
DX: Z01.818 Encounter for other preprocedural examination (principal)

== ENCOUNTER → 2021-04-12 | Outpatient (CLI) | payer MEDICAID ==
[~2021-04-12] MED LIST changes: +OMEP20TA7 PO
== END ==
LOC: LAB FS 10:20
PROVIDERS: ATTEND Surgery
DX: Z01.812 Encounter for preprocedural laboratory examination (principal); Z12.11 Encounter for screening for malignant neoplasm of colon; K21.9 Gastro-esophageal reflux disease without esophagitis; Z20.822 Contact with and (suspected) exposure to COVID-19
CPT/HCPCS: 87635

== ENCOUNTER 2021-04-16 10:46 | Day surgery (SDC) | payer MEDICARE, MEDICAID ==
[~2021-04-16] VITALS: Ht 167.6 cm; Wt 69.3 kg
[~2021-04-16 10:46] MED LIST changes: -OMEP20TA7 PO
[2021-04-16] MEDS ORDERED: LACTATED RINGERS 1,000 ML IV ONE (10:53)
[2021-04-16] MEDS ORDERED: LACTATED RINGERS 1,000 ML IV STA (10:57)
[2021-04-16] MEDS ORDERED: HURRICAINE EXT TUBE (BENZOCAINE) XX PRN (11:00)
[2021-04-16 11:25] VITALS: BP 133/86
--- NOTE | 2021-04-16 11:40 | Progress Note-Pre Operative ---
Pre-Operative Progress Note H&P Reviewed The H&P was reviewed, patient examined and no changes noted. Date Seen by Provider: Apr 16, 2021 Time Seen by Provider: 11:40 Date H&P Reviewed: Apr 16, 2021 Time H&P Reviewed: 11:40 Pre-Operative Diagnosis: gerd, epigastric abdominal pain, screening colonoscopy BRANDON JORDAN DO Apr 16, 2021 11:40
[2021-04-16] MEDS ORDERED: proPOfol 200 MG/20 ML (DIPRIVAN) VIAL IV ONE (12:16)
[2021-04-16] MEDS ORDERED: MIDAZOLAM 2 MG/2 ML (VERSED) VIAL ONE (12:16)
[2021-04-16] MEDS ORDERED: OMEP20TA7 PO (12:44)
--- NOTE | 2021-04-16 12:45 | Discharge Inst-Simple/Standard ---
Discharge Inst-Standard Discharge Medications New, Converted or Re-Newed RX: Transmitted to Pharmacy Patient Instructions/Follow Up Plan of Care/Instructions/FU: Luz 2 weeks. Activity as Tolerated: Yes Discharge Diet: Regular Diet BRANDON JORDAN DO Apr 16, 2021 12:45
--- NOTE | 2021-04-16 12:46 | Progress Note-Post Operative ---
Post-Operative Progess Note Surgeon (s)/Pinmaker (s) Surgeon BRANDON JORDAN DO Pinmaker: na Pre-Operative Diagnosis gerd, epigastric abdominal pain, screening colonoscopy Post-Operative Diagnosis hiatal hernia, reflux esophagitis, colon polyps Procedure & Operative Findings Date of Procedure 04/16/21 Procedure Performed/Findings egd c boipsies, colonoscopy c hot bx polypectomy x 4 and fulguration of polyps x4 Anesthesia Type per floral assistant Estimated Blood Loss Estimated blood loss (mL): na Specimens/Packing Specimens Removed antrum, ge, colon polyps BRANDON JORDAN DO Apr 16, 2021 12:46
[2021-04-16 12:50] VITALS: BP 126/81
[2021-04-16 12:55] VITALS: BP 129/77
[2021-04-16 13:25] VITALS: BP 129/77
[2021-04-16 13:45] VITALS: BP 129/77
--- NOTE | 2021-04-16 14:30 | Anesthesia-General Post-Op ---
MAC Patient Condition Mental Status/LOC: Same as Preop Cardiovascular: Satisfactory Nausea/Vomiting: Absent Respiratory: Satisfactory Pain: Controlled Complications: Absent Post Op Complications Complications None Follow Up Care/Instructions Patient Instructions None needed. Anesthesiology Discharge Order Discharge Order Patient is doing well, no complaints, stable vital signs, no apparent adverse anesthesia problems. No complications reported per nursing. KEVIN TAYLOR CRNA Apr 16, 2021 14:30
--- NOTE | 2021-04-16 15:21 | OPERATIVE REPORT ---
DATE OF SERVICE: PREOPERATIVE DIAGNOSES: Gastroesophageal reflux disease, epigastric abdominal pain, and screening colonoscopy. POSTOPERATIVE DIAGNOSES: Hiatal hernia, reflux esophagitis, and colon polyps. PROCEDURES PERFORMED: EGD with biopsies, colonoscopy with hot biopsy polypectomy x4 and fulguration of polyps x4. SURGEON: Brandon Escobar DO. ANESTHESIA: Per CIRCUS PERFORMER. ESTIMATED BLOOD LOSS: None. COMPLICATIONS: None. SPECIMENS: Antrum, GE junction, and colon polyps. INDICATIONS FOR PROCEDURE: The patient is a 55-year-old female, who is having GERD and epigastric abdominal pain. She also needs screening colonoscopy. She understands the risks and benefits of the procedure and wished to proceed with procedures. Consent was signed in the chart. DESCRIPTION OF PROCEDURE: The patient was taken to the endoscopy suite and placed in a left lateral recumbent position. Timeout was performed. Scope was inserted in mouth, down the esophagus, stomach and into the duodenum without difficulty. No polyps, masses or ulcerations in the duodenum. Scope was slowly retracted back to the stomach, where it was further insufflated. No polyps, masses or ulcerations within the stomach. Biopsy of the antrum was obtained. Scope was retroflexed noting a hiatal hernia, no other pathology noted. Scope was returned to its normal position, slowly withdrawn to distal esophagus, some changes of reflux esophagitis present. Biopsy of the GE junction was obtained. Scope was then slowly retracted back until completely removed, noting no other pathology. Digital rectal exam was performed. No palpable polyps, masses or ulcerations. Scope was inserted in the rectum, advanced all the way to cecum with minimal difficulty. The cecum had some fluid, which was suctioned out. The small suction change was made in the cecum, right next to the appendiceal orifice, which will not cause any difficulty. Scope was then slowly retracted back. No polyps, masses or ulcerations within the cecum, ascending, transverse and descending colon. In the sigmoid colon, a polyp was present, which hot biopsy polypectomy was performed. Scope was then continuously retracted back in the rectum, where three other polyps were present, which hot biopsy polypectomy was performed. There were four polyps in the rectum, which very minute and hyperplastic in appearance, which were fulgurated. Scope was retroflexed noting no other pathology. Scope was returned to its normal position, slowly withdrawn until completely removed. The patient tolerated the procedure well without any complications. She was taken to the recovery room in a stable condition. RECOMMENDATIONS: The patient will need repeat colonoscopy in 3 to 5 years. Any issues before that be seen at that time. The patient will be started on omeprazole 20 mg daily. We will see how her symptoms her pathology shows. Job ID: [id number] DocumentID: [id number] Dictated Date: 04/16/2021 12:49:56 Career Information Specialist Date: 04/16/2021 15:21:01 Dictated By: BRANDON ESCOBAR DO
== END 2021-04-16 13:45 | disposition home or self-care (01) ==
LOC: ENDO 10:46
PROVIDERS: ATTEND Surgery
DX: Z12.11 Encounter for screening for malignant neoplasm of colon (principal); K21.00 Gastro-esophageal reflux disease with esophagitis, without bleeding; K31.89 Other diseases of stomach and duodenum; K63.5 Polyp of colon; K62.1 Rectal polyp; K44.9 Diaphragmatic hernia without obstruction or gangrene; I10 Essential (primary) hypertension; F32.9 Major depressive disorder, single episode, unspecified; Z87.891 Personal history of nicotine dependence; Z90.710 Acquired absence of both cervix and uterus; Z90.89 Acquired absence of other organs; Z80.9 Family history of malignant neoplasm, unspecified; Z82.49 Family history of ischemic heart disease and other diseases of the circulatory system
CPT/HCPCS: 88305

== ENCOUNTER 2021-08-03 12:20 | Emergency (ER) | payer MEDICARE, MEDICAID ==
[~2021-08-03] VITALS: Ht 165 cm; Wt 70.0 kg
[~2021-08-03 12:20] MED LIST changes: +CYCL10TA25 PO; -CYCL10TA9 PO; +OMEP20TA7 PO
--- NOTE | 2021-08-03 12:30 | ED Fall/Injury ---
General Stated Complaint: FALL History of Present Illness Date Seen by Provider: Aug 03, 2021 Time Seen by Provider: 12:28 Initial Comments 56-year-old female presents with right lower rib pain/chest wall pain. Patient reports that she was coming down a couple stairs when she slipped on ice and fell at the bottom of the stairs. She landed on her right side and is complaining of right lower rib pain. Reports it hurts to take a deep breath, to stand up or sit down. She denies any other injury. She reports that happened just prior to arrival. Allergies and Home Medications Allergies Coded Allergies: No Known Drug Allergies (Unverified , 12/04/16) Patient Home Medication List Home Medication List Reviewed: Yes Hydrocodone/Acetaminophen (Hydrocodone-Acetamin 5-325 mg) 1 Each Tablet, 1 TAB PO Q8H PRN for PAIN-MODERATE (5-7) Prescribed by: MARIA DEL CARMEN GUTIERREZ on 08/03/21 1306 Omeprazole (Omeprazole) 20 Mg Tablet.dr, 20 MG PO DAILY Prescribed by: BRANDON JORDAN on 04/16/21 1244 Review of Systems Review of Systems Constitutional: No chills, No fever Eyes: No Symptoms Reported Ears, Nose, Mouth, Throat: no symptoms reported Respiratory: see HPI Cardiovascular: see HPI Gastrointestinal: no symptoms reported; No abdominal pain, No nausea, No v omiting Musculoskeletal: no symptoms reported Skin: no symptoms reported Psychiatric/Neurological: No Symptoms Reported Past Gcwreza-Nmeiec-Qiesog Hx Seasonal Allergies Seasonal Allergies: No Past Medical History Surgeries: Yes (SHOULDER ROTATOR CUFF, LASIK-CATARACTS, BLADDER SLING/RHINOPLASTY) Hysterectomy, Tonsillectomy Respiratory: No Cardiac: Yes Hypertension Neurological: No 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 Disorders: Yes (CYSTOCELE, RECTOCLES) Female 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 5.0oz. 76.149166hq; 24.67 BMI Method: General Appearance: mild distress HEENT: PERRL/EOMI Neck: full range of motion, supple Cardiovascular: normal peripheral pulses, regular rate, rhythm Respiratory: lungs clear, normal breath sounds, no respiratory distress, no accessory muscle use, other (Tenderness to the right lateral and posterior lateral ribs) Gastrointestinal: non tender, soft Extremities: normal range of motion, non-tender, normal inspection Neurologic/Psychiatric: alert, normal mood/affect, oriented x 3 Skin: normal color, warm/dry Progress/Results/Core Measures Results/Orders My Orders Orders - MARIA DEL CARMEN GUTIERREZ DO Ribs/Unilateral With Chest (08/03/21 12:26) Vital Signs/I&O 08/03/21 08/03/21 12:32 13:00 Temp 36.5 36.5 Pulse 83 83 Resp 18 18 B/P (MAP) 133/81 (98) 133/81 Pulse Ox 97 97 O2 Delivery Room Air Room Air Progress Progress Note : Progress Note Patient with 10th and 11th rib fractures. Discussed findings with patient. She was provided some hydrocodone for pain control. Recommended eehq-nnc-ktcidpa measures also. She should follow-up with her primary care provider as needed for worsening pain or any other concerns Diagnostic Imaging Diagonstic Imaging: Xray Plain Films/CT/US/NM/MRI: chest Comments RIBS/UNILATERAL WITH CHEST Patient History: Right-sided rib pain. Fall.. Technique: 5 views of the chest and right ribs. Comparison: 07/18/2019. FINDINGS: The lung volumes are normal. No focal consolidation is seen. No large pleural effusion or pneumothorax is seen. The cardiomediastinal silhouette is normal in size and contour. Minimally displaced fractures are seen involving the right 10th and 11th ribs posteriorly. Old rib fracture involving the right 10th rib is noted. IMPRESSION: 1. Minimally displaced fractures involving the posterior aspect of the right 10th and 11th ribs. No associated pneumothorax or pleural effusion. Old 10th right rib fracture is seen. 2. No focal consolidation in the lungs. Departure Impression Primary Impression: Right rib fracture Qualified Codes: S22.41XA - Multiple fractures of ribs, right side, initial encounter for closed fracture Disposition: HOME, SELF-CARE Condition: Stable Departure-Patient Inst. Referrals: JOHN SEN MD (PCP/Family) Primary Care Physician Patient Instructions: Rib Fracture or Bruised Rib ED Add. Discharge Instructions: Ice to affected area for 24 hours then warm moist heat 4% topical lidocaine with menthol, cream, gel or patch as directed on package Follow-up with your primary care provider as needed Scripts Hydrocodone/Acetaminophen (Hydrocodone-Acetamin 5-325 mg) 1 Each Tablet 1 TAB PO Q8H PRN for PAIN-MODERATE (5-7), #10 TAB Prov: MARIA DEL CARMEN GUTIERREZ DO 08/03/21 MARIA DEL CARMEN GUTIERREZ DO Aug 03, 2021 12:30
--- NOTE | 2021-08-03 12:58 | Diagnostic Imaging Report ---
Patient History: Right-sided rib pain. Fall.. Technique: 5 views of the chest and right ribs. Comparison: 07/18/2019. FINDINGS: The lung volumes are normal. No focal consolidation is seen. No large pleural effusion or pneumothorax is seen. The cardiomediastinal silhouette is normal in size and contour. Minimally displaced fractures are seen involving the right 10th and 11th ribs posteriorly. Old rib fracture involving the right 10th rib is noted. IMPRESSION: 1. Minimally displaced fractures involving the posterior aspect of the right 10th and 11th ribs. No associated pneumothorax or pleural effusion. Old 10th right rib fracture is seen. 2. No focal consolidation in the lungs. Dictated by: Dictated on workstation # [id number]
[2021-08-03 13:00] VITALS: BP 133/81
[2021-08-03] MEDS ORDERED: ACHD5005 PO (13:05)
== END 2021-08-03 13:09 | disposition home or self-care (01) ==
LOC: EDUNIT# 12:20 → ER FS 12:22
DX: S22.41XA Multiple fractures of ribs, right side, initial encounter for closed fracture (principal); I10 Essential (primary) hypertension; K21.9 Gastro-esophageal reflux disease without esophagitis; Z79.899 Other long term (current) drug therapy; W10.8XXA Fall (on) (from) other stairs and steps, initial encounter
CPT/HCPCS: 71101

== ENCOUNTER → 2021-10-29 | Outpatient (CLI) | payer MEDICARE, MEDICAID ==
[~2021-10-29] MED LIST changes: +ACHD5005 PO
--- NOTE | 2021-10-29 16:09 | Diagnostic Imaging Report ---
INDICATION: Right-sided rib fracture, followup. TIME OF EXAM: 2:04 PM. COMPARISON: Correlation is made with the prior radiographs from 08/03/2021. FINDINGS: There are healing fractures involving right-sided posterior 9th, 10th, and 11th ribs with moderate callus formation. There are also healing fractures of the anterior right 7th, 8th, and 9th ribs. The lungs are clear. There is no effusion or pneumothorax. IMPRESSION: Healing right-sided rib fractures. Dictated by: Dictated on workstation # [id number]
== END ==
LOC: RAD FS 13:50
PROVIDERS: ATTEND Allergy & Immunology
DX: S22.31XA Fracture of one rib, right side, initial encounter for closed fracture (principal); X58.XXXA Exposure to other specified factors, initial encounter
CPT/HCPCS: 71100

== ENCOUNTER → 2021-12-02 | Outpatient (CLI) | payer MEDICARE, MEDICAID ==
[~2021-12-02] MED LIST changes: +OMEP20TA56 PO; -OMEP20TA7 PO
== END ==
LOC: LAB FS 12:22
PROVIDERS: ATTEND Registered Nurse Emergency
DX: N89.8 Other specified noninflammatory disorders of vagina (principal)
CPT/HCPCS: 87210

== ENCOUNTER → 2021-12-09 | Outpatient (CLI) | payer MEDICARE, MEDICAID ==
[~2021-12-09] MED LIST changes: +CATHETER FLUSH 10 ML SYR IV PRN; +HOLD METFORMIN - RECEIVED CONTRAST 20 ML VIAL IV SCH; +IOHEXOL 350 MG/ML 100 ML (OMNIPAQUE 350) VIAL IV ONE; +NS 100 ML (IVPB) BAG IV ONE
[2021-12-09 13:33] LABS: ALBUMIN 4.3 GM/DL (3.2-4.5); POTASSIUM 5.3 MMOL/L (3.6-5.0)
[2021-12-09 13:34] LABS: CALCIUM 9.7 MG/DL (8.5-10.1)
[2021-12-09 13:36] LABS: TOTAL PROTEIN 7.2 GM/DL (6.4-8.2)
[2021-12-09 13:37] LABS: BILIRUBIN,TOTAL 0.3 MG/DL (0.1-1.0)
[2021-12-09 13:39] LABS: CREATININE SERUM 0.89 MG/DL (0.60-1.30)
--- NOTE | 2021-12-09 14:54 | Diagnostic Imaging Report ---
PROCEDURE: CT abdomen and pelvis with contrast. TECHNIQUE: Multiple contiguous axial images were obtained through the abdomen and pelvis after administration of intravenous contrast. Auto Exposure Controls were utilized during the CT exam to meet ALARA standards for radiation dose reduction. All CT scans use one or more of the following dose optimizing techniques: automated exposure control, MA and/or KvP adjustment based on patient size and exam type or iterative reconstruction. INDICATION: 1 weeks history left lower quadrant pain, history of urinary tract infections. Correlation is limited due to overlap sections obtained during a chest CT of 07/18/2019. There is colonic diverticula greatest at the sigmoid and distal descending colon. At the level of the distal descending colon where diverticula are present, there is some stranding of the pericolonic fat which given the history is suspicious for mild acute diverticulitis. No extraluminal air or findings of viscus perforation. No abscess or drainable fluid collection and no resultant bowel obstruction. The appendix visualized air-containing and normal. Urinary bladder unremarkable. There is no adnexal lesion. Liver, gallbladder, bile ducts, spleen, adrenals and pancreas all unremarkable. The unobstructed kidneys were normal. The atherosclerotic aorta is nonaneurysmal. Impression: 1. Findings suggest changes of mild active diverticulitis of distal descending colon without abscess, obstruction, perforation, fistula or other complicating feature. 2. Normal appendix, unobstructed urinary tracts. No other acute-appearing abnormalities. Called to Lula Palma APRN at 2:51 p.m. by alexab. Dictated by: Dictated on workstation # [id number]
== END ==
LOC: RAD 14:15
PROVIDERS: ATTEND Registered Nurse Emergency
DX: R10.32 Left lower quadrant pain (principal); Z87.440 Personal history of urinary (tract) infections
CPT/HCPCS: 36415; 74177; 80053

== ENCOUNTER 2022-08-26 20:15 | Emergency (ER) | payer OTHER, MEDICAID ==
[~2022-08-26] VITALS: Ht 165.1 cm; Wt 73.7 kg
[~2022-08-26 20:15] MED LIST changes: -CATHETER FLUSH 10 ML SYR IV PRN; -HOLD METFORMIN - RECEIVED CONTRAST 20 ML VIAL IV SCH; -IOHEXOL 350 MG/ML 100 ML (OMNIPAQUE 350) VIAL IV ONE; -NS 100 ML (IVPB) BAG IV ONE
--- NOTE | 2022-08-26 20:32 | ED Cardiac General ---
History of Present Illness General Chief Complaint: Cardiac/General Problems Stated Complaint: HIGH BP Source: patient History of Present Illness Date Seen by Provider: Aug 26, 2022 Time Seen by Provider: 20:27 Initial Comments 57-year-old female presenting by private vehicle with concerns for elevated blood pressure. She has been having issues controlling her blood pressure in the last 2 months. And she feels like the lisinopril/hydrochlorothiazide medicine that she takes gives her an elevated potassium and makes her hands and legs cramp. She has an appointment to see a asphalt tamper at [facility] for a evaluation on . She has been given a prescription for metoprolol 25 mg twice daily as needed but they did not specify what blood pressure levels were numbers to take the medicine. Codie when she was at a casino in [place] she had also taken a phone call from her son which causes her to become more anxious and stressed as he is still in shelter for last 20 years. She noticed that she was having blurred vision with headache and dizziness. She felt like she was getting some chest tightness. However when she was having the symptoms she checked her blood pressure at home and showed me that at one point she had 1 88/147 but most of them were 170s to 180s over 100 to 115. She did take her Lisinopril/HCTZ and a dose of Metoprolol tonight when she was home. Then she came to the ED to be evaluated. On arrival to the ED she is not having any further symptoms and blood pressure improved down to 158/88. Timing/Duration: other (intermittent over last 2 months) Severity: moderate Location: substernal (chest tightness/pressure) Activities at Onset: emotional stress Prior CP/Workup: no prior cardiac workup Modifying Factors: improves with rest (and taking her new BP medicine Metoprolol); worse with other (stress makes her blood pressure go higher) NTG SL VETERANS EMPLOYMENT REPRESENTATIVE: No ASA po VETERANS EMPLOYMENT REPRESENTATIVE: No Associated Systoms: Chest Pain; No Cough, No Diaphoresis, No Fever/Chills; Headaches; No Loss of Appetite, No Malaise, No Nausea/Vomiting, No Rash, No Seizure, No Shortness of Air, No Syncope, No Weakness Allergies and Home Medications Allergies Coded Allergies: No Known Drug Allergies (Unverified , 12/04/16) Patient Home Medication List Home Medication List Reviewed: Yes Cetirizine HCl (Cetirizine HCl) 10 Mg Tablet, 10 MG PO DAILY, (Reported) Entered as Reported by: RANDA ROLDAN on 08/26/222128 Last Action: New Order Cyanocobalamin/Cobamamide (Sv B-12 5,000 Mcg Microlozenge) 5,000 Mcg-100 Mcg Lozenge, (Reported) Entered as Reported by: RANDA ROLDAN on 08/26/222128 Last Action: New Order Lisinopril/Hydrochlorothiazide (Lisinopril-Hctz 20-25 mg Tab) 20 Mg-25 Mg Tablet, 1 TAB PO DAILY, (Reported) Entered as Reported by: RANDA ROLDAN on 08/26/222128 Last Action: New Order Metoprolol Tartrate (Metoprolol Tartrate) 25 Mg Tablet, 25 MG PO BID, (Reported) Entered as Reported by: RANDA ROLDAN on 08/26/222128 Last Action: New Order Discontinued Medications Hydrocodone/Acetaminophen (Hydrocodone-Acetamin 5-325 mg) 1 Each Tablet, 1 TAB PO Q8H PRN for PAIN-MODERATE (5-7) Discontinued Reason: Referral/FU Appt-Addtl Prescribed by: MARIA DEL CARMEN GUTIERREZ on 08/03/21 1306 Last Action: Discontinued Omeprazole (Omeprazole) 20 Mg Tablet.dr, 20 MG PO DAILY Discontinued Reason: Referral/FU Appt-Addtl Prescribed by: BRANDON JORDAN on 04/16/21 1244 Last Action: Discontinued Review of Systems Review of Systems Constitutional: No chills, No diaphoresis, No fever EENTM: Blurred Vision (occasional); No Nose Congestion, No Other (epistaxis) Respiratory: Denies Cough, Denies Shortness of Air Cardiovascular: See HPI Gastrointestinal: Denies Nausea, Denies Vomiting Genitourinary: No Symptoms Reported Musculoskeletal: muscle cramps (each night in hands and legs. she feels it is due to her Lisinopril/Hydrochlorothiazide) Skin: No rash Psychiatric/Neurological: See HPI, Anxiety, Headache Past Dlipwen-Afcfyq-Sguimy Hx Patient Social History Tobacco Use?: Yes Tobacco type used: Cigarettes Alcohol Use?: Yes Alcohol type: Hard Liquor Immunizations Up To Date First/Initial COVID19 Vaccinat: 2021 Second COVID19 Vaccination Hermilo: 2020 Seasonal Allergies Seasonal Allergies: No Past Medical History Surgery/Hospitalization HX: Hypertension Surgeries: Yes (SHOULDER ROTATOR CUFF, LASIK-CATARACTS, BLADDER SLING/RHINOPLASTY) Hysterectomy, Tonsillectomy Respiratory: No Cardiac: Yes Hypertension Neurological: No 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 Disorders: Yes (CYSTOCELE, RECTOCLES) Female 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 Disorders: 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 5.0oz. 76.578741da; 25.00 BMI Method: General Appearance: No Apparent Distress, WD/WN Neurologic/Psychiatric: Alert, Oriented x3 Skin: Normal Color, Warm/Dry Other comments Patient declined full physical exam or any blood work or testing as she was feeling better and did not want testing done tonight since she has follow up with cardiology . Progress/Results/Core Measures Results/Orders Vital Signs/I&O 08/26/22 08/26/22 20:19 21:00 Temp 36.7 36.7 Pulse 80 75 Resp 18 18 B/P (MAP) 185/85 (118) 158/88 Pulse Ox 98 98 O2 Delivery Room Air Room Air Progress Progress Note : Progress Note Patient with potential diagnosis labile hypertension, noncompliance with meds, heart failure. On arrival to the emergency department patient stated that the symptoms she was concerned about with headache dizziness and chest pain had all resolved after taking the additional blood pressure medicine at home. Her blood pressure here in the emergency department was 158/88. She was slightly anxious but in no acute distress. She declined having a full physical exam and did not want any additional labs or testing done since she was already improved. I did review her medication with her and since she was having some many side effects from the lisinopril/hydrochlorothiazide but has the additional metoprolol that she could take a advised her to stop the lisinopril hydrochlorothiazide combination pill. Have her take the metoprolol twice once a day if not twice a day depending on if she was having high blood pressure. She reports that she test her blood pressure several times throughout the day. Have her keep the appointment with cardiology for evaluation. If she is having worsening symptoms not improving with resting and taking her medicine then she should come be seen again. There was not a specific number to worry about as much as if she was having the high blood pressure and having symptoms. Counseled on DASH diet and ways to help manage her stress and high blood pressure at home. Encouraged to follow-up or return if having worsening symptoms. Patient was reassured with the blood pressure coming down and again continue to decline or refuse to have labs or additional testing tonight since she was already doing better with her medication. Departure Impression Primary Impression: Labile hypertension Additional Impression: Elevated blood pressure reading with diagnosis of hypertension Disposition: HOME, SELF-CARE Condition: Improved Departure-Patient Inst. Decision time for Depature: 20:53 Referrals: SAMIR OBREGON APRN (PCP/Family) Primary Care Physician Patient Instructions: High Blood Pressure ED, Lowering Your Risk of Heart Disease, DASH Diet, High Blood Pressure Emergencies Add. Discharge Instructions: Since you are having so many side effects with the Lisinopril/Hydrochlorothiazide, stop taking it and take the Metoprolol instead. Take the Metoprolol 25 mg at least once a day and if your blood pressures are still running high then take it every 12 hours or once in the morning and once at night. If you are having symptoms of high blood pressure such as headache, dizziness, chest pain, blurred vision then try to relax and check your blood pressure. If it is not coming down with you trying to relax and rest then you would need to be seen for those symptoms as you may need additional blood pressure medicine or treatment to help manage your hypertension. Keep appointment with your new Television Parts Tester on and let them know you did not tolerate the Lisinopril or the Losartan. All discharge instructions reviewed with patient and/or family. Voiced understanding. BALBIR SHAHID MD Aug 26, 2022 20:32
[2022-08-26 21:00] VITALS: BP 158/88
[2022-08-26] MEDS ORDERED: CETI10TA17 PO (21:29)
[2022-08-26] MEDS ORDERED: LISI1TAB48 PO (21:29)
[2022-08-26] MEDS ORDERED: METO-333 PO (21:29)
[2022-08-26] MEDS ORDERED: CYAN1LOZ2 (21:29)
== END 2022-08-26 21:00 | disposition home or self-care (01) ==
LOC: EDUNIT# 20:15 → ER FS 20:17
DX: I10 Essential (primary) hypertension (principal); F17.210 Nicotine dependence, cigarettes, uncomplicated
CPT/HCPCS: 99281

== ENCOUNTER → 2022-12-02 | Outpatient (CLI) | payer OTHER, MEDICAID ==
[~2022-12-02] MED LIST changes: +CETI10TA17 PO; +CYAN1LOZ2; +LISI1TAB48 PO; +METO-333 PO
--- NOTE | 2022-12-02 19:09 | Diagnostic Imaging Report ---
INDICATION: Blood in stools. FINDINGS: Supine and upright abdominal radiograph showed no air-fluid level, dilated loops of bowel, free air or pneumatosis. No suspicious calcification. The fecal load radiographically was unremarkable. IMPRESSION: Unremarkable supine and upright abdominal radiographs. Dictated by: Dictated on workstation # [id number]
== END ==
LOC: LAB FS 10:11
PROVIDERS: ATTEND Registered Nurse Emergency
DX: K59.09 Other constipation (principal); K92.1 Melena; R10.32 Left lower quadrant pain
CPT/HCPCS: 74019

== ENCOUNTER → 2022-12-06 | Outpatient (CLI) | payer OTHER, MEDICAID | LOC: LAB FS 11:42 | PROVIDERS: ATTEND Registered Nurse Emergency | DX: K59.09 Other constipation (principal); K92.1 Melena | CPT/HCPCS: 82274 ==

== ENCOUNTER 2022-12-23 08:25 | Emergency (ER) | payer OTHER, MEDICAID ==
--- NOTE | 2022-12-23 08:50 | ED Fall/Injury ---
General Chief Complaint: Back Problems Stated Complaint: BACK PAIN Source: patient Exam Limitations: no limitations History of Present Illness Date Seen by Provider: December 23, 2022 Time Seen by Provider: 08:30 Initial Comments 57-year-old female with no pertinent past medical history coming in after mechanical fall in the shower that occurred yesterday morning landing on her right side of her ribs. Has had constant, mild to moderate pain. The pain is worse with movement, better with rest. She is also been taking naproxen which has been helping. Denies any severe chest pain or shortness of breath associate with it. Did not hit her head or pass out. Does not take blood thinners. Denies any neck or back pain. Allergies and Home Medications Allergies Coded Allergies: No Known Drug Allergies (Unverified , 12/04/16) Patient Home Medication List Home Medication List Reviewed: Yes Cetirizine HCl (Cetirizine HCl) 10 Mg Tablet, 10 MG PO DAILY, (Reported) Entered as Reported by: RANDA ROLDAN on 08/26/222128 Cyanocobalamin/Cobamamide (Sv B-12 5,000 Mcg Microlozenge) 5,000 Mcg-100 Mcg Lozenge, (Reported) Entered as Reported by: RANDA ROLDAN on 08/26/222128 Hydrocodone/Acetaminophen (Hydrocodone-Acetamin 5-325 mg) 5 Mg-325 Mg Tablet, 1 TAB PO Q6H PRN for PAIN-MODERATE (5-7) Prescribed by: KAN MORAN on 12/23/22 0934 Lidocaine (Lidocaine 5% Patch) 5 % Adh..patch, 1 EACH TP Q12H PRN for Neuropathic pain Prescribed by: KAN MORAN on 12/23/22 0933 Lisinopril/Hydrochlorothiazide (Lisinopril-Hctz 20-25 mg Tab) 20 Mg-25 Mg Tablet, 1 TAB PO DAILY, (Reported) Entered as Reported by: RANDA ROLDAN on 08/26/222128 Metoprolol Tartrate (Metoprolol Tartrate) 25 Mg Tablet, 25 MG PO BID, (Reported) Entered as Reported by: RANDA ROLDAN on 08/26/222128 Review of Systems Review of Systems Constitutional: No fever Eyes: No Symptoms Reported Ears, Nose, Mouth, Throat: no symptoms reported Respiratory: no symptoms reported Cardiovascular: no symptoms reported Gastrointestinal: no symptoms reported Genitourinary: no symptoms reported Musculoskeletal: see HPI Skin: no symptoms reported Psychiatric/Neurological: No Symptoms Reported Past Tqhspco-Icndqm-Quvqcc Hx Patient Social History Tobacco Use?: Yes Tobacco type used: Cigarettes Smoking Status: Current Everyday Smoker Use of E-Cig and/or Vaping dev: No Substance use?: No Alcohol Use?: Yes Alcohol type: Beer Alcohol Frequency: Daily Pt feels they are or have been: No Immunizations Up To Date First/Initial COVID19 Vaccinat: 2020 Second COVID19 Vaccination Hermilo: 2020 Third COVID19 Vaccination Date: 2020 Seasonal Allergies Seasonal Allergies: No Past Medical History Surgery/Hospitalization HX: Hypertension; Alcohol abuse Surgeries: Yes (SHOULDER ROTATOR CUFF, LASIK-CATARACTS, BLADDER SLING/RHINOPLASTY) Hysterectomy, Tonsillectomy Respiratory: No Cardiac: Yes Hypertension Neurological: No 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 Disorders: Yes (CYSTOCELE, RECTOCLES) Female 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 Disorders: 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 5.0oz. 76.649123bs; 27.00 BMI Method: General Appearance: WD/WN, no apparent distress HEENT: PERRL/EOMI, normal ENT inspection, pharynx normal Neck: non-tender, full range of motion, supple, normal inspection Cardiovascular: regular rate, rhythm, no edema, no murmur Respiratory: lungs clear, normal breath sounds, no respiratory distress, no accessory muscle use, other (Right lateral rib pain to palpation) Gastrointestinal: normal bowel sounds, non tender, soft; No distended, No guarding, No rebound Back: normal inspection, no CVA tenderness, no vertebral tenderness Extremities: normal range of motion, non-tender, normal inspection, no pedal edema, no calf tenderness, normal capillary refill Neurologic/Psychiatric: no motor/sensory deficits, alert, normal mood/affect Skin: normal color Pérez Coma Score Best Eye Response: (4) Open Spontaneously Best Verbal Response: (5) Oriented Best Motor Response: (6) Obeys Commands Progress/Results/Core Measures Results/Orders My Orders Orders - KAN MORAN MD Ribs/Unilateral With Chest (12/23/22 08:48) Vital Signs/I&O 12/23/22 08:30 Temp 36.4 Pulse 75 Resp 16 B/P (MAP) 136/78 (97) Pulse Ox 99 O2 Delivery Room Air Progress Progress Note : Progress Note 57yoF with above history coming in due to right lateral rib pain after a fall. ABCs intact and VSS on presentation. She is Swedish head and cervical spine rule negative and CT imaging was not obtained. Chest x-ray as well as right rib views were obtained and interpreted by me showing callus consistent with prior fracture, as well and has an area that looks more acute. She has no right upper quadrant pain and I do not have any suspicion for a clinically significant liver laceration given how long its been since the injury. Recommend ibuprofen and/or Tylenol. We will also give her a prescription for lidocaine patches to place over the area that hurts the most. We also sent in a few hydrocodone. I believe she stable for discharge with outpatient follow-up. She was sent home with strict return precautions. Diagnostic Imaging Diagonstic Imaging: Xray (chest with rib series on the right) Departure Impression Primary Impression: Fall Qualified Codes: W19.XXXA - Unspecified fall, initial encounter Additional Impression: Right rib fracture Qualified Codes: S22.31XA - Fracture of one rib, right side, initial encounter for closed fracture Disposition: HOME, SELF-CARE Condition: Stable Departure-Patient Inst. Decision time for Depature: 09:15 Referrals: SAMIR OBREGON APRN (PCP) Primary Care Physician ALHAJI TAYLOR MD (Family) Primary Care Physician Patient Instructions: Rib Fracture or Bruised Rib ED Add. Discharge Instructions: You do have an area of old rib fractures, and there is likely 1 area where there is a newer fracture. Continue to take ibuprofen or naproxen as needed for pain. Lidocaine patches were also sent, placed over the area of most pain. We will send in a few hydrocodone to take when you have the most severe pain. This will heal on its own. Scripts Lidocaine (Lidocaine 5% Patch) 5 % Adh..patch 1 EACH TP Q12H PRN for Neuropathic pain MDD 2 for 14 Days, #28 PATCH 2 patches max for 12 hours, then 12 hours patch-free period. Prov: KAN MORAN MD 12/23/22 Hydrocodone/Acetaminophen (Hydrocodone-Acetamin 5-325 mg) 5 Mg-325 Mg Tablet 1 TAB PO Q6H PRN for PAIN-MODERATE (5-7) for 3 Days, #12 TAB Prov: KAN MORAN MD 12/23/22 Work/School Note: Work Release Form Date Seen in the Emergency Department: December 23, 2022 Return to Work: December 24, 2022 Restrictions: No Restrictions KAN MORAN MD December 23, 2022 08:50
[2022-12-23] MEDS ORDERED: ACHD5005 PO (09:33)
[2022-12-23] MEDS ORDERED: LIDO700A45 TP (09:33)
[2022-12-23 09:35] VITALS: BP 136/78
--- NOTE | 2022-12-23 10:32 | Diagnostic Imaging Report ---
HISTORY: Fall, right rib pain. TECHNIQUE: Frontal view of the chest. Frontal and oblique views of the right ribs. COMPARISON: Radiographs from 10/29/2021. FINDINGS: Lung volumes are normal. No consolidation is seen. There is no pleural effusion or pneumothorax. The cardiac silhouette is normal in size. There are multiple old right-sided rib fractures. No new fracture is seen. IMPRESSION: Old right-sided rib fractures. No acute fracture is seen. No acute pulmonary abnormality. Dictated by: Dictated on workstation # [id number]
== END 2022-12-23 09:35 | disposition home or self-care (01) ==
LOC: EDUNIT# 08:25 → ER FS 08:29
DX: S22.31XA Fracture of one rib, right side, initial encounter for closed fracture (principal); F17.210 Nicotine dependence, cigarettes, uncomplicated; W18.2XXA Fall in (into) shower or empty bathtub, initial encounter
CPT/HCPCS: 71101

== ENCOUNTER 2023-01-15 11:10 | Emergency (ER) | payer MEDICARE, MEDICAID ==
[~2023-01-15 11:10] MED LIST changes: +LIDO700A45 TP
[2023-01-15 11:14] VITALS: BP 173/89
--- NOTE | 2023-01-15 11:29 | ED Fall/Injury ---
General Stated Complaint: FALL Source: patient Exam Limitations: no limitations History of Present Illness Date Seen by Provider: Jan 15, 2023 Time Seen by Provider: 11:18 Initial Comments 57-year-old female presents to the emergency department today for right-sided rib pain, pain in her tailbone region. She states she fell 3 weeks ago and had pain in these areas. She fell again in the shower yesterday. She states she has a eyelid problem that causes her balance to be skewed sometimes which causes her to fall. She did not lose consciousness but she did hit her head. She does have a mild headache but no changes in vision. No upper or lower extremity weakness numbness or tingling. No loss of bowel or bladder control she has been ambulatory without difficulty. All other systems reviewed and negative except documented per HPI. Voice recognition software was used to help create this chart Allergies and Home Medications Allergies Coded Allergies: No Known Drug Allergies (Unverified , 12/04/16) Patient Home Medication List Home Medication List Reviewed: Yes Cetirizine HCl (Cetirizine HCl) 10 Mg Tablet, 10 MG PO DAILY, (Reported) Entered as Reported by: RANDA ROLDAN on 08/26/222128 Cyanocobalamin/Cobamamide (Sv B-12 5,000 Mcg Microlozenge) 5,000 Mcg-100 Mcg Lozenge, (Reported) Entered as Reported by: RANDA ROLDAN on 08/26/222128 Hydrocodone/Acetaminophen (Hydrocodone-Acetamin 5-325 mg) 5 Mg-325 Mg Tablet, 1 TAB PO Q6H PRN for PAIN-MODERATE (5-7) Prescribed by: KAN MORAN on 12/23/22 0934 Lidocaine (Lidocaine 5% Patch) 5 % Adh..patch, 1 EACH TP Q12H PRN for Neuropathic pain Prescribed by: KAN MORAN on 12/23/22 0933 Lisinopril/Hydrochlorothiazide (Lisinopril-Hctz 20-25 mg Tab) 20 Mg-25 Mg Tablet, 1 TAB PO DAILY, (Reported) Entered as Reported by: RANDA ROLDAN on 08/26/222128 Metoprolol Tartrate (Metoprolol Tartrate) 25 Mg Tablet, 25 MG PO BID, (Reported) Entered as Reported by: RANDA ROLDAN on 08/26/222128 Review of Systems Review of Systems Constitutional: see HPI Past Nqlspck-Ggizxn-Hjhjef Hx Patient Social History Tobacco Use?: No Use of E-Cig and/or Vaping dev: No Substance use?: No Immunizations Up To Date First/Initial COVID19 Vaccinat: 2020 Second COVID19 Vaccination Hermilo: 2020 Third COVID19 Vaccination Date: 2020 Seasonal Allergies Seasonal Allergies: No Past Medical History Surgery/Hospitalization HX: Hypertension; Alcohol abuse Surgeries: Yes (SHOULDER ROTATOR CUFF, LASIK-CATARACTS, BLADDER SLING/RHINOPLASTY) Hysterectomy, Tonsillectomy Respiratory: No Cardiac: Yes Hypertension Neurological: No 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 Disorders: Yes (CYSTOCELE, RECTOCLES) Female 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 Disorders: 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 5.0oz. 76.479313to; 27.00 BMI Method: General Appearance: WD/WN, no apparent distress HEENT: normal ENT inspection, pharynx normal Neck: non-tender, supple Cardiovascular: regular rate, rhythm, no murmur Respiratory: lungs clear, normal breath sounds, no respiratory distress, no accessory muscle use, other (Very mild tenderness palpation the right posterior rib angles. No crepitus deformity or bruising.) Gastrointestinal: normal bowel sounds, non tender, soft, no organomegaly Back: normal inspection, no CVA tenderness, no vertebral tenderness Extremities: normal range of motion, non-tender, normal inspection Neurologic/Psychiatric: alert, normal mood/affect, oriented x 3 Skin: normal color, warm/dry Departure Communication (Admissions) Patient has normal oxygen saturation, nontachycardic, clear breath sounds bilaterally. She has very mild tenderness to palpation of the right ribs posteriorly with no crepitus or deformity. There is no bruising in the area. I highly doubt fracture however I did did discuss with the patient that bruise versus fractured ribs without pneumothorax that the treatment would be pain control alone. I did not think that imaging was indicated. She immediately became angry and stormed out stating "I thought you were medical professional." I advised her once again that exposing her to unnecessary radiation at this time was not the right thing medically to do. She was visibly irritated and left AGAINST MEDICAL ADVICE. Impression Primary Impression: Contusion of rib on right side Qualified Codes: S20.211A - Contusion of right front wall of thorax, initial encounter Disposition: 07 AGAINST MEDICAL ADVICE Condition: Against Medical Advice Departure-Patient Inst. Referrals: SAMIR OBREGON APRN (PCP) Primary Care Physician ALHAJI TAYLOR MD (Family) Primary Care Physician AFIA VORA DO Jan 15, 2023 11:29
== END 2023-01-15 11:30 | disposition left against medical advice (07) ==
LOC: EDUNIT# 11:10 → ER FS 11:11
DX: S20.211A Contusion of right front wall of thorax, initial encounter (principal); W18.30XA Fall on same level, unspecified, initial encounter; W22.8XXA Striking against or struck by other objects, initial encounter
CPT/HCPCS: 99281